=== PATIENT | male | born 1995 | race African-American/Black ===

== ENCOUNTER 2020-09-22 00:05 | Emergency (ER) | payer BC, MEDICAID, OTHER ==
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
== END 2020-09-22 01:18 | disposition home or self-care (01) ==
LOC: VM.ED 00:05
DX: M79.662 Pain in left lower leg (principal); M79.661 Pain in right lower leg; R07.9 Chest pain, unspecified; R10.32 Left lower quadrant pain; R10.31 Right lower quadrant pain; V03.90XA Pedestrian on foot injured in collision with car, pick-up truck or van, unspecified whether traffic or nontraffic accident, initial encounter
CPT/HCPCS: 99283; 99284

== ENCOUNTER 2020-12-18 22:11 | Emergency (ER) | payer SELFPAY ==
[2020-12-18] MEDS: Lidocaine 2% with EPINEPHrine 1:100,000 20 ML MDV INJECT ONE (23:08)
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
[2020-12-19] MEDS: ceFAZolin 1 GM Vial IM ONE (00:10)
--- NOTE | 2020-12-19 07:41 | CR ---
[id number] RAD/RAD Fingers Right EXAM: RAD Fingers Right CLINICAL DATA: TRAUMA COMPARISON: No previous similar exam is available. FINDINGS: There is a comminuted ungual tuft fracture of the distal right fourth phalanx. There is a fracture at the dorsal base of the distal right fourth phalanx with articular involvement IMPRESSION: FRACTURES OF DISTAL RIGHT FOURTH PHALANX Gianfranco Sherman MD 12/19/20 0740 Thank you for allowing us to participate in the care of your patient.
== END 2020-12-19 00:25 ==
LOC: VM.ED 22:11
DX: S62.634A Displaced fracture of distal phalanx of right ring finger, initial encounter for closed fracture (principal); S61.304A Unspecified open wound of right ring finger with damage to nail, initial encounter; Y04.0XXA Assault by unarmed brawl or fight, initial encounter
CPT/HCPCS: 11760; 73140-F8; 96372; 99283; 99283-25; J0690

== ENCOUNTER 2021-01-29 14:30 | Emergency (ER) | payer SELFPAY ==
[2021-01-29] MEDS ORDERED: LORazepam 1 MG Tab PO ONE (14:47)
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
[2021-01-29 15:11] LABS: BUPRENORPHINE,URINE NEGATIVE (NEGATIVE); MARIJUANA,URINE POSITIVE (NEGATIVE); METHYLENEDIOXYMETHAMP,UR NEGATIVE (NEGATIVE); PHENCYCLIDINE,URINE NEGATIVE (NEGATIVE)
[2021-01-29 15:38] LABS: CHLORIDE,CL 105 mmol/L (98-107); SODIUM,NA 142 mmol/L (136-145)
[2021-01-29 15:39] LABS: ANION GAP 11.6 mmol/L (5-15)
[2021-01-29 15:45] LABS: ACETAMINOPHEN 0 ug/ml (10-30)
== END 2021-01-29 16:25 | disposition home or self-care (01) ==
LOC: VM.ED 14:30
DX: F43.0 Acute stress reaction (principal); Z20.822 Contact with and (suspected) exposure to COVID-19
CPT/HCPCS: 36415; 80053; 80143; 80179; 80305-QW; 80307; 82150; 83605; 83690; 83735; 84443; 85025; 85379; 99283; 99284; A9270-GY; U0002

== ENCOUNTER 2021-02-18 18:24 | Emergency (ER) | payer SELFPAY ==
--- NOTE | 2021-02-18 19:08 | EDM.PDOC ---
ED HPI GENERAL MEDICAL PROBLEM - General Chief Complaint: Behavioral/Psych Time Seen by Provider: 02/18/21 18:40 Source of Information: Reports: Patient, Police History Limitations: Reports: No Limitations - History of Present Illness INITIAL COMMENTS - FREE TEXT/NARRATIVE: Pt. presents to ER with police. Police were called because the patient was loitering near a bridge for a period of time. Police made contact with the patient, who stated that he had been under increased stress due to legal problems. He is due in court tomorrow. Pt. has denied to law enforcement that he is not suicidal or homicidal. He denies any plan to harm himself and affirms that he is not a threat to himself of others. Pt. is not wanting to discuss the particulars of his behavioral problems today, and became upset when nursing was questioning the patient. He has been alert to time, date and place. Pt. made statements to law enforcement that he thinks he is a devil. He is unhappy with how his life is going now. Pt. was seen in ER on 01/29 for anxiety and symptoms that appear to be identical to today. He was worked up for possible placement, but he was not accepted for emergency admission as he was not suicidal, homicidal and he was alert and oriented. He was given information for follow-up with [facility] but has failed to do so at this point. When he was seen in the ER on 01/29, he was experiencing neuro symptoms and underwent head CT, labs all of which were normal. Pt. is not experiencing any neuro symptoms, chest pain, shortness of breath, or other worrisome signs/symptoms. Onset: Today Location: Reports: Generalized - Related Data Allergies Allergy/AdvReac Type Severity Reaction Status Date / Time No Known Allergies Allergy Verified 02/18/21 18:59 Home Meds: Home Meds . [No Known Home Meds] 01/29/21 [History] Past Medical History - Past Health History Medical/Surgical History: Denies Medical/Surgical History - Infectious Disease History Infectious Disease History: Reports: None Social & Family History - Tobacco Use Tobacco Use Status *Q: Unknown Ever Used Tobacco ED ROS GENERAL - Review of Systems Review Of Systems: See Below Constitutional: Reports: No Symptoms HEENT: Reports: No Symptoms Respiratory: Reports: No Symptoms Cardiovascular: Reports: No Symptoms Endocrine: Reports: No Symptoms GI/Abdominal: Reports: No Symptoms : Reports: No Symptoms Musculoskeletal: Reports: No Symptoms Skin: Reports: No Symptoms Neurological: Reports: No Symptoms. Denies: Confusion, Dizziness, Headache, Numbness, Paresthesia, Pre-Existing Deficit, Seizure, Syncope, Tingling, Tremors, Trouble Speaking, Difficulty Walking, Weakness, Change in Speech, Gait Disturbance Psychiatric: Reports: Anxiety, Mood Lability Hematologic/Lymphatic: Reports: No Symptoms Immunologic: Reports: No Symptoms ED EXAM, GENERAL - Physical Exam Exam: See Below Exam Limited By: No Limitations General Appearance: Alert, WD/WN, No Apparent Distress Eye Exam: Bilateral Eye: EOMI, Normal Fundi, Normal Inspection, PERRL Head: Atraumatic, Normocephalic Neck: Normal Inspection, Supple, Non-Tender Respiratory/Chest: No Respiratory Distress, Lungs Clear, Normal Breath Sounds, No Accessory Muscle Use, Chest Non-Tender Cardiovascular: Normal Peripheral Pulses, Regular Rate, Rhythm (Male) Exam: Deferred Rectal (Males) Exam: Deferred Extremities: Normal Inspection, Normal Range of Motion, Non-Tender, No Pedal Edema, Normal Capillary Refill Neurological: Alert, Oriented, CN II-XII Intact, Normal Cognition, Normal Gait, Normal Reflexes, No Motor/Sensory Deficits Psychiatric: Anxious, Depressed Mood Skin Exam: Warm, Dry, Intact, Normal Color, No Rash Course - Vital Signs Last Recorded V/S: Last Vital Signs Temp 36.9 C 02/18/21 18:40 Pulse 74 02/18/21 18:40 Resp 18 02/18/21 18:40 BP 124/87 02/18/21 18:40 Pulse Ox 98 02/18/21 18:40 Departure - Departure Time of Disposition: 19:21 Disposition: Home, Self-Care 01 Clinical Impression: Anxiety, Depressive disorder - Discharge Information Instructions: Generalized Anxiety Disorder, Adult Forms: ED Department Discharge Additional Instructions: Home to rest. The number for the [facility] is [phone]. They can help you, despite being able to pay. Return to ER or call 911 if you feel like harming yourself or someone else. Sepsis Event Note (ED) - Evaluation Sepsis Screening Result: No Definite Risk - Focused Exam Vital Signs: Vital Signs Temp Pulse Resp BP Pulse Ox 02/18/21 18:40 36.9 C 74 18 124/87 98 - Problem List Review Problem List Initiated/Reviewed/Updated: Yes - Assessment/Plan Plan: Pt. contracted for safety. He will return to ER if he develops any suicidal or homicidal thoughts. He states that he does not want inpatient treatment for psych at this time. He is alert to time, date, and place on exam. He is not acti vely experiencing any hallucinations or evidence of active psychosis. He was given the number for the crisis line at [facility]. He states that he has not sought problems for anxiety or depression in the past due to not having insurance. Informed patient that this was not necessary if using the human service center. All questions were answered.
== END 2021-02-18 19:02 | disposition home or self-care (01) ==
LOC: VM.ED 18:24
DX: F41.8 Other specified anxiety disorders (principal)
CPT/HCPCS: 99283